=== PATIENT | female | born 1940 | race Caucasian/White ===

== ENCOUNTER 2023-01-26 12:55 | Observation (INO) | payer MEDICARE, OTHER, SELFPAY ==
[2023-01-26] VITALS (8 sets, daily range): BP systolic 114–165; BP diastolic 57–77; PULSE 59–67; RESP 18; TEMP 36.6–36.9; O2SAT 94–97; BMI 37.9; BMI 38.7
--- NOTE | 2023-01-26 13:39 | ECG_ITS ---
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
[2023-01-26 14:18] LABS: Basophils Absolute Auto 0.1 10^3/uL (0.0-0.1); Basophils Percent Auto 0.9 % (0.2-2.0); Eosinophils Absolute Auto 0.1 10^3/uL (0.0-0.7); Eosinophils Percent Auto 1.4 % (0.9-7.0); Hematocrit 37.2 % (36.0-48.0); Hemoglobin 12.7 g/dL (12.0-16.0); Immature Granulocytes Abs Auto 0.07 10^3/uL (0.00-0.03); Immature Granulocytes Pct Auto 1.2 % (0.0-0.5); Lymphocytes Percent Auto 17.3 % (20.5-60.0); Mean Corpuscular HGB Conc 34.1 g/dL (29.9-35.2); Mean Corpuscular Hemoglobin 31.8 pg (26.7-34.0); Mean Platelet Volume 12.3 fL (9.5-13.5); Monocytes Absolute Auto 0.5 10^3/uL (0.3-0.8); Monocytes Percent Auto 8.6 % (1.7-12.0); Neutrophils Percent Auto 70.6 % (43.0-75.0); Platelet Count 171 10^3/uL (150-450); Red Cell Distribution Width 13.2 % (11.0-15.0); White Blood Count 5.7 10^3/uL (4.0-11.0)
[2023-01-26 14:22] LABS: Alanine Aminotransferase 42 U/L (14-59); Albumin Globulin Ratio 0.8; Albumin Level 3.3 g/dL (3.4-5.0); Alkaline Phosphatase 64 U/L (46-116); Aspartate Amino Transferase 36 U/L (15-37); BUN Creatinine Ratio 22.5; Bilirubin Total 0.6 mg/dL (0.2-1.0); Calcium 8.7 mg/dL (8.5-10.1); Carbon Dioxide 27.2 mmol/L (21.0-32.0); Chloride 100 mmol/L (98-107); Estimated GFR (African America >60 (>=60); Estimated GFR (Non-African Ame 52 (>=60); Globulin 4.4 g/dL; Glucose 164 mg/dL (74-106); Potassium 4.2 mmol/L (3.5-5.1); Sodium 135 mmol/L (136-145); Total Protein 7.7 g/dL (6.4-8.2)
--- NOTE | 2023-01-26 14:36 | XR_ITS ---
The [address] [address] Patient Name: VÍCTOR WALDRON MRN: [facility]:[id number] date: 1940 Sex: F Assigned Patient Location: ER Current Patient Location: ER Accession/Order Number: [id number] Exam Date: 01/26/2023 14:45 Report Date: 01/26/2023 15:06 At the request of: MORRO HANKS Procedure: XR ankle LT 2V STUDY: XR ankle LT 2V, XR tibia fibula LT 2V, [id number], [id number] HISTORY: pain COMPARISON: None FINDINGS: No acute fracture, dislocation, or suspicious osseous lesion. No subcutaneous emphysema. No discrete osteolysis. Diffuse subcutaneous edema. No lucent lesion of the talar dome. Moderate dorsal osteophytosis at the metatarsophalangeal joints. Large plantar calcaneal spur and mild callus occasional in the distal Achilles. Mild/moderate osteophytosis of the medial compartment. XR/XR ankle LT 2V IMPRESSION: Diffuse subcutaneous edema without soft tissue gas or acute osseous abnormality. Electronically authenticated by: SELENE PELLETIER Date: 01/26/2023 15:06
--- NOTE | 2023-01-26 14:36 | XR_ITS ---
[address] [address] Patient Name: VÍCTOR WALDRON MRN: [id number] date: 1940 Sex: F Assigned Patient Location: ER Current Patient Location: ER Accession/Order Number: [id number] Exam Date: 01/26/2023 14:45 Report Date: 01/26/2023 15:06 At the request of: MORRO HANKS Procedure: XR tibia fibula LT 2V STUDY: XR ankle LT 2V, XR tibia fibula LT 2V, [id number], [id number] HISTORY: pain COMPARISON: None FINDINGS: No acute fracture, dislocation, or suspicious osseous lesion. No subcutaneous emphysema. No discrete osteolysis. Diffuse subcutaneous edema. No lucent lesion of the talar dome. Moderate dorsal osteophytosis at the metatarsophalangeal joints. Large plantar calcaneal spur and mild callus occasional in the distal Achilles. Mild/moderate osteophytosis of the medial compartment. XR/XR tibia fibula LT 2V IMPRESSION: Diffuse subcutaneous edema without soft tissue gas or acute osseous abnormality. Electronically authenticated by: SELENE PELLETIER Date: 01/26/2023 15:06
[2023-01-26] MEDS: PIPERACILLIN SODIUM/TAZOBACTAM 3.375 GM in 0.9 % SODIUM CHLORIDE 50 ML IV ×2 (14:55→21:01)
--- NOTE | 2023-01-26 15:23 | ED.GENADUL1 ---
Documented by User: Alla Gillespie 01/26/23 15:35 HPI - General Adult General Chief complaint: Extremity Problem, Nontraumatic Stated complaint: LT FOOT AND LEG SWELLING Time Seen by Provider: 01/26/23 14:20 Source: patient Mode of arrival: walk-in Limitations: no limitations History of Present Illness HPI narrative: 82-year-old female presents here with a chief complaint of left lower extremity redness and swelling. Patient's had a history two years ago cellulitis to this extremity. She states that approximately two weeks ago she fell in her garden. She is not wrecked denies any injury or trauma that time. Small pustules noted to the medial aspect of the lower ankle area. She has seen Dr. Ann in the past was admitted to the hospital for her cellulitis. Patient denies any fevers chills nausea or vomiting. Redness swelling and edema noted to the left lower extremity with streaking up into the medial thigh and groin area. She is not currently on any antibiotics. Related Data Home Medications Medication Instructions Recorded Confirmed brimonidine 0.15 % eye drops 1 drp ophthalmic (eye) BID 01/26/23 01/26/23 carvedilol 25 mg tablet 25 mg PO Q12H 01/26/23 01/26/23 diltiazem HCl 180 mg 180 mg PO Q24H 01/26/23 01/26/23 capsule,extended release 24 hr fluoxetine 10 mg capsule 10 mg PO DAILY 01/26/23 01/26/23 furosemide 40 mg tablet 40 mg PO Q12H 01/26/23 01/26/23 potassium chloride 20 mEq 20 meq PO QDAY 01/26/23 01/26/23 tablet,extended release spironolactone 25 mg tablet 25 mg PO QDAY 01/26/23 01/26/23 Allergies Allergy/AdvReac Type Severity Reaction Status Date / Time prednisone Allergy Severe Uncoded 01/26/23 13:04 meta bisulfites Allergy Intermediate Uncoded 01/26/23 13:04 Review of Systems ROS Narrative All Systems are negative except as noted/marked.All systems reviewed and otherwise negative [facility] Medical History (Updated 01/26/23 @ 17:32 by Evelia Deleon) Surgical History (Updated 01/26/23 @ 17:32 by Evelia Deleon) Family History (Updated 01/26/23 @ 17:34 by Evelia Deleon) Mother Family history of CHF (congestive heart failure) Family history of stroke Father Family history of cancer Sister Family history of cancer Social History (Updated 01/26/23 @ 17:35 by Evelia Deleon) Within the past year, how often did you have a drink containing alcohol: never Score interpretation: A score less than 3 is consistent with normal alcohol consumption. 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 level of school completed/degree received: high school graduate Are you now , , , , never or living with a partner: In a typical week, how many times do you talk on the telephone with family, friends, or neighbors: 3 or more times per week How often do you get together with friends or relatives: 3 or more times per week How often do you attend spiritism or denominational services: 4 or more times per year Do you belong to any clubs or organizations such as spiritism groups unions, fraternal or athletic groups, or school groups: no Total score: 3 Score interpretation: A score of greater than or equal to 2 indicates the lowest level of social isolation. Little interest or pleasure in doing things: not at all Feeling down, depressed, or hopeless: not at all Feel stressed/tense/nervous/anxious/difficulty sleeping: not at all Do you think of yourself as: straight/heterosexual Gender Identity: female Exam Narrative Exam Narrative: Nurses note and vital signs reviewed and patient is not hypoxic. General: The patient appears well and in no apparent distress. Patient is resting comfortably on cart. Skin: Warm, dry, no pallor noted. Edema with swelling to left lower extremity consistent with cellulitis, small pustule medial aspect of the ankle lower extremity Head: Normocephalic, atraumatic Eye: Normal conjunctiva, no drainage, EOMI. PERRL Ears, Nose, Mouth, and Throat: oral mucosa is moist. Nares patent. Mouth without vesicles. Ear canals patent. Tm's without Erythema Cardiovascular: Regular Rate and Rhythm Respiratory: Patient is in no distress, no accessory muscle use, lungs are clear to auscultation, no wheezing, rales or rhonchi GI: Normal bowel sounds, no tenderness to palpation, no masses appreciated. No rebound, guarding, or rigidity noted. Musculoskeletal:Left lower extremity swelling, pulses noted, redness irritation and pain, small pustule noted tenderness, remainder of extremities are unremarkable Neurological: A&O x4, normal speech Psychiatric: Cooperative Constitutional Vital Signs, click to edit/add: Last Vital Signs Temp 98.0 F 01/26/23 20:00 Pulse 66 01/26/23 20:12 Resp 18 01/26/23 20:00 BP 165/77 H 01/26/23 20:00 Pulse Ox 94 L 01/26/23 20:00 O2 Del Method Room Air 01/26/23 20:00 Course Vital Signs Vital signs: Vital Signs Temperature 98.5 F 01/26/23 13:05 Pulse Rate 67 01/26/23 13:05 Respiratory Rate 18 01/26/23 13:05 Blood Pressure 114/57 01/26/23 13:05 Pulse Oximetry 97 01/26/23 13:05 Oxygen Delivery Method Room Air 01/26/23 13:05 Temperature 98.0 F 01/26/23 20:00 Pulse Rate 66 01/26/23 20:12 Respiratory Rate 18 01/26/23 20:00 Blood Pressure 165/77 H 01/26/23 20:00 Pulse Oximetry 94 L 01/26/23 20:00 Oxygen Delivery Method Room Air 01/26/23 20:00 Medical Decision Making MDM Narrative Medical decision making narrative: Patient presented here with a chief complaint of left lower extremity redness and swelling. She states it started several days ago. She has history of cellulitis over two years ago. She states her symptoms began here several days ago she has seen Dr. Ann in the past. CBC CMP and labwork was reviewed and with in normal limits . Patient does have streaking up into her groin her left lower extremity has been marked with a marking pen. IV had been established in The emergency room. IV antibiotics of Zosyn and vancomycin were started here in emergency room. She does have a sulfa ALLERGY. pt did fall in her garden two weeks ago but denies any known thorns or scraping of her leg. A was notified of this patient's care and agrees to have her admitted. Patient has seen Marissa in the past. She agrees with plan of care she was admitted to observation diagnosis cellulitis of the left lower extremity the area has been marked. Patient past medical history does include a history she states of a lung collapse when she had cellulitis two years ago. She's had no shortness of breath here today. She states she is ALLERGIC to sulfa medications and prednisone. Differential Diagnosis Differential Diagnosis: Abscess, cellulitis Medical Records Medical records reviewed: Yes I reviewed the patient's medical records Lab Data Lab results reviewed: Yes I reviewed the patient's lab results Labs: Lab Results 01/26/23 Range/Units 13:50 WBC 5.7 (4.0-11.0) 10^3/uL RBC 4.00 L (4.20-5.40) 10^6/uL Hgb 12.7 (12.0-16.0) g/dL Hct 37.2 (36.0-48.0) % MCV 93.0 (81.0-99.0) fL MCH 31.8 (26.7-34.0) pg MCHC 34.1 (29.9-35.2) g/dL RDW 13.2 (11.0-15.0) % Plt Count 171 (150-450) 10^3/uL MPV 12.3 (9.5-13.5) fL Neut % (Auto) 70.6 (43.0-75.0) % Lymph % (Auto) 17.3 L (20.5-60.0) % [place] % (Auto) 8.6 (1.7-12.0) % Eos % (Auto) 1.4 (0.9-7.0) % Baso % (Auto) 0.9 (0.2-2.0) % Neut # (Auto) 4.0 (1.4-6.5) 10^3/uL Lymph # (Auto) 1.0 L (1.2-3.8) 10^3/uL [place] # (Auto) 0.5 (0.3-0.8) 10^3/uL Eos # (Auto) 0.1 (0.0-0.7) 10^3/uL Baso # (Auto) 0.1 (0.0-0.1) 10^3/uL Abs Immat Gran (auto) 0.07 H (0.00-0.03) 10^3/uL Imm/Tot Granulo (auto) 1.2 H (0.0-0.5) % Sodium 135 L (136-145) mmol/L Potassium 4.2 (3.5-5.1) mmol/L Chloride 100 (98-107) mmol/L Carbon Dioxide 27.2 (21.0-32.0) mmol/L Anion Gap 12.0 BUN 23.0 H (7.0-18.0) mg/dL Creatinine 1.02 (0.55-1.02) mg/dL Est GFR ( Amer) >60 (>=60) Est GFR (Non-Af Amer) 52 L (>=60) BUN/Creatinine Ratio 22.5 Glucose 164 H (74-106) mg/dL Calcium 8.7 (8.5-10.1) mg/dL Total Bilirubin 0.6 (0.2-1.0) mg/dL AST 36 (15-37) U/L ALT 42 (14-59) U/L Alkaline Phosphatase 64 (46-116) U/L NT-Pro-B Natriuret Pep 544.0 (<=1800.0) pg/mL Total Protein 7.7 (6.4-8.2) g/dL Albumin 3.3 L (3.4-5.0) g/dL Globulin 4.4 g/dL Albumin/Globulin Ratio 0.8 ECG Data Attestation: I personally reviewed and interpreted this ECG as follows: Interpretation: 1359 EKG shows a normal sinus rhythm rate [address] elevation or depression, LA interval 180 ms QRS duration 96 ms, no STEMI Discharge Plan Discharge Chief Complaint: Extremity Problem, Nontraumatic Clinical Impression: Cellulitis, Lower extremity edema Patient Disposition: Admitted as Observation Time of Disposition Decision: 15:33 Condition: Good Discharge Date/Time: 01/26/23 16:27 Documented by User: Genaro Boland MD 01/26/23 21:07 HPI - General Adult General Chief complaint: Extremity Problem, Nontraumatic Stated complaint: LT FOOT AND LEG SWELLING Time Seen by Provider: 01/26/23 14:20 Related Data Home Medications Medication Instructions Recorded Confirmed brimonidine 0.15 % eye drops 1 drp ophthalmic (eye) BID 01/26/23 01/26/23 carvedilol 25 mg tablet 25 mg PO Q12H 01/26/23 01/26/23 diltiazem HCl 180 mg 180 mg PO Q24H 01/26/23 01/26/23 capsule,extended release 24 hr fluoxetine 10 mg capsule 10 mg PO DAILY 01/26/23 01/26/23 furosemide 40 mg tablet 40 mg PO Q12H 01/26/23 01/26/23 potassium chloride 20 mEq 20 meq PO QDAY 01/26/23 01/26/23 tablet,extended release spironolactone 25 mg tablet 25 mg PO QDAY 01/26/23 01/26/23 Allergies Allergy/AdvReac Type Severity Reaction Status Date / Time prednisone Allergy Severe Uncoded 01/26/23 13:04 meta bisulfites Allergy Intermediate Uncoded 01/26/23 13:04 [facility] Medical History (Updated 01/26/23 @ 17:32 by Evelia Deleon) Surgical History (Updated 01/26/23 @ 17:32 by Evelia Deleon) Family History (Updated 01/26/23 @ 17:34 by Evelia Deleon) Mother Family history of CHF (congestive heart failure) Family history of stroke Father Family history of cancer Sister Family history of cancer Social History (Updated 01/26/23 @ 17:35 by Evelia Deleon) Within the past year, how often did you have a drink containing alcohol: never Score interpretation: A score less than 3 is consistent with normal alcohol consumption. 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 level of school completed/degree received: high school graduate Are you now , , , , never or living with a partner: In a typical week, how many times do you talk on the telephone with family, friends, or neighbors: 3 or more times per week How often do you get together with friends or relatives: 3 or more times per week How often do you attend spiritism or denominational services: 4 or more times per year Do you belong to any clubs or organizations such as spiritism groups unions, fraternal or athletic groups, or school groups: no Total score: 3 Score interpretation: A score of greater than or equal to 2 indicates the lowest level of social isolation. Little interest or pleasure in doing things: not at all Feeling down, depressed, or hopeless: not at all Feel stressed/tense/nervous/anxious/difficulty sleeping: not at all Do you think of yourself as: straight/heterosexual Gender Identity: female Exam Constitutional Vital Signs, click to edit/add: Last Vital Signs Temp 98.0 F 01/26/23 20:00 Pulse 66 01/26/23 20:12 Resp 18 01/26/23 20:00 BP 165/77 H 01/26/23 20:00 Pulse Ox 94 L 01/26/23 20:00 O2 Del Method Room Air 01/26/23 20:00 Course Vital Signs Vital signs: Vital Signs Temperature 98.5 F 01/26/23 13:05 Pulse Rate 67 01/26/23 13:05 Respiratory Rate 18 01/26/23 13:05 Blood Pressure 114/57 01/26/23 13:05 Pulse Oximetry 97 01/26/23 13:05 Oxygen Delivery Method Room Air 01/26/23 13:05 Temperature 98.0 F 01/26/23 20:00 Pulse Rate 66 01/26/23 20:12 Respiratory Rate 18 01/26/23 20:00 Blood Pressure 165/77 H 01/26/23 20:00 Pulse Oximetry 94 L 01/26/23 20:00 Oxygen Delivery Method Room Air 01/26/23 20:00 Medical Decision Making MDM Narrative Medical decision making narrative: Patient presented here with a chief complaint of left lower extremity redness and swelling. She states it started several days ago. She has history of cellulitis over two years ago. She states her symptoms began here several days ago she has seen Dr. Ann in the past. CBC CMP and labwork was reviewed and with in normal limits . Patient does have streaking up into her groin her left lower extremity has been marked with a marking pen. IV had been established in The emergency room. IV antibiotics of Zosyn and vancomycin were started here in emergency room. She does have a sulfa ALLERGY. pt did fall in her garden two weeks ago but denies any known thorns or scraping of her leg. A was notified of this patient's care and agrees to have her admitted. Patient has seen Marissa in the past. She agrees with plan of care she was admitted to observation diagnosis cellulitis of the left lower extremity the area has been marked. I, Dr Boland, have reviewed the above progress note and course of action in the ER; agree with the above. I have personally seen and evaluated this patient, gone over history and physical, and discussed disposition and treatment plan with the patient. Patient past medical history does include a history she states of a lung collapse when she had cellulitis two years ago. She's had no shortness of breath here today. She states she is ALLERGIC to sulfa medications and prednisone. Lab Data Labs: Lab Results 01/26/23 Range/Units 13:50 WBC 5.7 (4.0-11.0) 10^3/uL RBC 4.00 L (4.20-5.40) 10^6/uL Hgb 12.7 (12.0-16.0) g/dL Hct 37.2 (36.0-48.0) % MCV 93.0 (81.0-99.0) fL MCH 31.8 (26.7-34.0) pg MCHC 34.1 (29.9-35.2) g/dL RDW 13.2 (11.0-15.0) % Plt Count 171 (150-450) 10^3/uL MPV 12.3 (9.5-13.5) fL Neut % (Auto) 70.6 (43.0-75.0) % Lymph % (Auto) 17.3 L (20.5-60.0) % [place] % (Auto) 8.6 (1.7-12.0) % Eos % (Auto) 1.4 (0.9-7.0) % Baso % (Auto) 0.9 (0.2-2.0) % Neut # (Auto) 4.0 (1.4-6.5) 10^3/uL Lymph # (Auto) 1.0 L (1.2-3.8) 10^3/uL [place] # (Auto) 0.5 (0.3-0.8) 10^3/uL Eos # (Auto) 0.1 (0.0-0.7) 10^3/uL Baso # (Auto) 0.1 (0.0-0.1) 10^3/uL Abs Immat Gran (auto) 0.07 H (0.00-0.03) 10^3/uL Imm/Tot Granulo (auto) 1.2 H (0.0-0.5) % Sodium 135 L (136-145) mmol/L Potassium 4.2 (3.5-5.1) mmol/L Chloride 100 (98-107) mmol/L Carbon Dioxide 27.2 (21.0-32.0) mmol/L Anion Gap 12.0 BUN 23.0 H (7.0-18.0) mg/dL Creatinine 1.02 (0.55-1.02) mg/dL Est GFR ( Amer) >60 (>=60) Est GFR (Non-Af Amer) 52 L (>=60) BUN/Creatinine Ratio 22.5 Glucose 164 H (74-106) mg/dL Calcium 8.7 (8.5-10.1) mg/dL Total Bilirubin 0.6 (0.2-1.0) mg/dL AST 36 (15-37) U/L ALT 42 (14-59) U/L Alkaline Phosphatase 64 (46-116) U/L NT-Pro-B Natriuret Pep 544.0 (<=1800.0) pg/mL Total Protein 7.7 (6.4-8.2) g/dL Albumin 3.3 L (3.4-5.0) g/dL Globulin 4.4 g/dL Albumin/Globulin Ratio 0.8 Discharge Plan Discharge Chief Complaint: Extremity Problem, Nontraumatic Clinical Impression: Cellulitis, Lower extremity edema Patient Disposition: Admitted as Observation Time of Disposition Decision: 15:33 Condition: Good Discharge Date/Time: 01/26/23 16:27
[2023-01-26] MEDS: VANCOMYCIN HCL 1,000 MG in 0.9 % SODIUM CHLORIDE 250 ML 250 MG IV (15:43)
--- NOTE | 2023-01-26 15:55 | US_ITS ---
The [address] [address] Patient Name: VÍCTOR WALDRON MRN: [id number] date: 1940 Sex: F Assigned Patient Location: ER Current Patient Location: ER Accession/Order Number: [id number] Exam Date: 01/26/2023 15:58 Report Date: 01/26/2023 16:28 At the request of: GEO ERICKSON Procedure: US venous doppler LE LT EXAM: US venous doppler LE LT HISTORY: swelling COMPARISON: None. TECHNIQUE: Ultrasonography of the left lower extremity is performed from the groin to the calf. There is limited visualization of the calf veins. FINDINGS: The deep venous structures demonstrate normal compressibility. No intraluminal thrombus. Normal color Doppler images with spectral waveforms. There is soft tissue edema in the calf. US/US venous doppler LE LT IMPRESSION: No evidence for deep venous thrombosis. Calf edema. Limited visualization of the calf veins. Electronically authenticated by: PRANAY GLEZ Date: 01/26/2023 16:28
[2023-01-26] MEDS: FUROSEMIDE 40 MG TABLET PO (21:00)
[2023-01-27] VITALS (10 sets, daily range): BP systolic 159; BP diastolic 72; PULSE 56–75; RESP 18; TEMP 36.6; O2SAT 95–96
[2023-01-27 05:02] LABS: Basophils Absolute Auto 0.1 10^3/uL (0.0-0.1); Basophils Percent Auto 1.3 % (0.2-2.0); Eosinophils Absolute Auto 0.2 10^3/uL (0.0-0.7); Eosinophils Percent Auto 2.9 % (0.9-7.0); Hematocrit 37.2 % (36.0-48.0); Hemoglobin 12.6 g/dL (12.0-16.0); Immature Granulocytes Abs Auto 0.17 10^3/uL (0.00-0.03); Immature Granulocytes Pct Auto 2.9 % (0.0-0.5); Lymphocytes Absolute Auto 1.4 10^3/uL (1.2-3.8); Lymphocytes Percent Auto 23.3 % (20.5-60.0); Mean Corpuscular HGB Conc 33.9 g/dL (29.9-35.2); Mean Corpuscular Hemoglobin 31.8 pg (26.7-34.0); Mean Corpuscular Volume 93.9 fL (81.0-99.0); Mean Platelet Volume 11.6 fL (9.5-13.5); Monocytes Absolute Auto 0.7 10^3/uL (0.3-0.8); Monocytes Percent Auto 10.9 % (1.7-12.0); Neutrophils Absolute Auto 3.5 10^3/uL (1.4-6.5); Neutrophils Percent Auto 58.7 % (43.0-75.0); Platelet Count 197 10^3/uL (150-450); Red Blood Count 3.96 10^6/uL (4.20-5.40); Red Cell Distribution Width 13.3 % (11.0-15.0)
[2023-01-27 05:17] LABS: BUN Creatinine Ratio 23.7; Calcium 8.5 mg/dL (8.5-10.1); Carbon Dioxide 25.1 mmol/L (21.0-32.0); Chloride 99 mmol/L (98-107); Estimated GFR (African America >60 (>=60); Estimated GFR (Non-African Ame 55 (>=60); Glucose 181 mg/dL (74-106); Potassium 4.1 mmol/L (3.5-5.1); Sodium 134 mmol/L (136-145)
[2023-01-27] MEDS: PIPERACILLIN SODIUM/TAZOBACTAM 3.375 GM in 0.9 % SODIUM CHLORIDE 50 ML IV (05:21)
[2023-01-27 05:44] LABS: C Reactive Protein 10.8 mg/dL (<=1.0)
[2023-01-27] MEDS: SPIRONOLACTONE 25 MG TABLET PO (09:32)
[2023-01-27] MEDS: CARVEDILOL 25 MG TABLET PO (09:32)
[2023-01-27] MEDS: POTASSIUM CHLORIDE 10 MEQ ER TABLET 20 MEQ PO (09:32)
[2023-01-27] MEDS: FUROSEMIDE 40 MG TABLET PO (09:32)
[2023-01-27] MEDS: FLUOXETINE HCL 10 MG CAPSULE PO (09:33)
[2023-01-27] MEDS: VANCOMYCIN HCL 1,500 MG in 0.9 % SODIUM CHLORIDE 500 ML 250 MG IV (09:50)
--- NOTE | 2023-01-27 12:04 | P.HP_ITS ---
H&P: HPI History of Present Illness Chief complaint: LT FOOT AND LEG SWELLING CELLULITIS LOWER EXTREMIT Narrative: 82 y/o female with a history of CHF and chronic venous stasis presents with left foot and leg redness and swelling. Fell about 2 weeks ago. Developed increased swelling and redness to left leg. Noticed small blisters on skin. Redness started to spread up leg above knee and worried about cellulitis. Afebrile and no nausea or emesis. To ER and WBC normal. Afebrile. X-ray showed subcutaneou s edema and admitted. Started zosyn and vancomycin. Much improved this am. Redness receding from demarcated border. Less pain and swelling. Ambulating well. Review of Systems ROS Constitutional Denies: fever, chills or night sweats Cardiovascular Denies: chest pain, palpitations or edema Respiratory Denies: shortness of breath, cough or wheezing Gastrointestinal Denies: abdominal pain, nausea, vomiting or diarrhea Genitourinary Denies: painful urination Integumentary/Breast Reports: redness PFSH [facility] Medical History (Updated 01/27/23 @ 10:07 by Rafa Denney MD) Surgical History (Updated 01/26/23 @ 17:32 by Evelia Deleon) Family History (Updated 01/26/23 @ 17:34 by Evelia Deleon) Mother Family history of CHF (congestive heart failure) Family history of stroke Father Family history of cancer Sister Family history of cancer Social History (Updated 01/26/23 @ 17:35 by Evelia Deleon) Within the past year, how often did you have a drink containing alcohol: never Score interpretation: A score less than 3 is consistent with normal alcohol consumption. 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 Highest level of school completed/degree received: high school graduate Are you now , , , , never or living with a partner: In a typical week, how many times do you talk on the telephone with family, friends, or neighbors: 3 or more times per week How often do you get together with friends or relatives: 3 or more times per week How often do you attend adventist or roman catholic services: 4 or more times per year Do you belong to any clubs or organizations such as adventist groups unions, fraternal or athletic groups, or school groups: no Total score: 3 Score interpretation: A score of greater than or equal to 2 indicates the lowest level of social isolation. Little interest or pleasure in doing things: not at all Feeling down, depressed, or hopeless: not at all Feel stressed/tense/nervous/anxious/difficulty sleeping: not at all Do you think of yourself as: straight/heterosexual Gender Identity: female Meds Home Medications and Allergies Home Medications Medication Instructions Recorded Confirmed Type brimonidine 0.15 % eye drops 1 drp ophthalmic (eye) BID 01/26/23 01/26/23 History carvedilol 25 mg tablet 25 mg PO Q12H 01/26/23 01/26/23 History diltiazem HCl 180 mg 180 mg PO Q24H 01/26/23 01/26/23 History capsule,extended release 24 hr fluoxetine 10 mg capsule 10 mg PO DAILY 01/26/23 01/26/23 History furosemide 40 mg tablet 40 mg PO Q12H 01/26/23 01/26/23 History potassium chloride 20 mEq 20 meq PO QDAY 01/26/23 01/26/23 History tablet,extended release spironolactone 25 mg tablet 25 mg PO QDAY 01/26/23 01/26/23 History Allergies Allergy/AdvReac Type Severity Reaction Status Date / Time prednisone Allergy Severe Uncoded 01/26/23 13:04 meta bisulfites Allergy Intermediate Uncoded 01/26/23 13:04 Exam Constitutional Vital Signs, click to edit/add: Last Vital Signs Temp 97.8 F 01/27/23 04:37 Pulse 61 01/27/23 11:55 Resp 18 01/27/23 04:37 BP 159/72 H 01/27/23 04:37 Pulse Ox 96 01/27/23 11:43 O2 Del Method Room Air 01/27/23 11:43 Documenting provider has reviewed patient's vital signs: yes Common normals: no apparent distress, oriented x3 and alert HENMT Common normals: normocephalic Eye Common normals: PERRL and EOMs intact bilaterally Respiratory Common normals: normal respiratory effort and clear to auscultation bilaterally Cardio Common normals: regular rate, regular rhythm, no gallops, no murmurs and no rub GI Common normals: Normal to inspection, nondistended, normoactive bowel sounds present and non-tender Extremity General: edema (Left leg with 3+ bipedal pitting edema and mild erythema) Results Labs Labs: Short CBC 01/26/23 01/27/23 Range/Units 13:50 04:30 WBC 5.7 6.0 (4.0-11.0) 10^3/uL Hgb 12.7 12.6 (12.0-16.0) g/dL Hct 37.2 37.2 (36.0-48.0) % Plt Count 171 197 (150-450) 10^3/uL BMP 01/26/23 01/27/23 13:50 04:35 Sodium 135 L 134 L Potassium 4.2 4.1 Chloride 100 99 Carbon Dioxide 27.2 25.1 BUN 23.0 H 23.0 H Creatinine 1.02 0.97 Glucose 164 H 181 H Calcium 8.7 8.5 Liver Function 01/26/23 Range/Units 13:50 Total Bilirubin 0.6 (0.2-1.0) mg/dL AST 36 (15-37) U/L ALT 42 (14-59) U/L Alkaline Phosphatase 64 (46-116) U/L Albumin 3.3 L (3.4-5.0) g/dL Assessment and Plan Assessment and Plan (1) Cellulitis of left leg: (2) Chronic venous stasis dermatitis: (3) Hypertension: (4) Chronic heart failure with preserved ejection fraction (HFpEF): (5) Prediabetes: Plan Presented with erythema and swelling but improved with antibiotics. Afebrile and erythema much improved. Normal WBC. Discharge home. Will take oral augmentin and bactrim for infection. Resume home medication as directed. F/u in office in 2-4 weeks.
--- NOTE | 2023-01-30 11:54 | CM.DCFOLLOWU ---
Person spoke with: Danielle How are you feeling? Doing well How is your pain? no complaints Did you understand your discharge instructions? Yes Do you have any questions about your discharge instructions? No Were you given any prescriptions at discharge? Yes, two antibiotics Were you able to get your prescriptions filled? Yes and taking them as directed. Do you understand how to take your medications as ordered? yes Do you have any questions about your follow up appointment and do you plan to keep your follow up appointment? Dr. Denney instructed her to follow up if there were any changes in the redness, pain or increase in the area of cellulitis Is there anything else that you would like to discuss? No. Doing well. Questions/Comments/Concerns/Other:
== END 2023-01-27 13:30 | disposition home or self-care (01) ==
LOC: ER 15:35 → MS 18:42
PROVIDERS: Family Medicine; Admitting Provider Family Medicine; Emergency Provider Emergency Medicine; PCP Family Medicine; Visit Provider Family Medicine
DX: L03.116 Cellulitis of left lower limb (principal); I87.2 Venous insufficiency (chronic) (peripheral); R73.03 Prediabetes; I11.0 Hypertensive heart disease with heart failure; I50.32 Chronic diastolic (congestive) heart failure; Z79.899 Other long term (current) drug therapy; Z91.81 History of falling
CPT/HCPCS: 36415; 73590; 73600; 80048; 80053; 83880; 85025; 86140; 87040; 93005; 93971; 94761; 96365; 96366; 96367; 96368; 99285; G0378; J3370

== ENCOUNTER 2023-03-24 13:20 | Observation (INO) | payer MEDICARE, OTHER, SELFPAY ==
[2023-03-24 13:28] VITALS: BP 190/102; PULSE 77; RESP 24; TEMP 36.7; O2SAT 97; BMI 38.3
--- NOTE | 2023-03-24 13:43 | ED.GENADUL1 ---
HPI - General Adult General Chief complaint: Skin/Abscess/Foreign Body Stated complaint: POSS. CELLULITIS IN L LEG/RED Time Seen by Provider: 03/24/23 13:28 Source: patient Mode of arrival: walk-in Limitations: no limitations History of Present Illness HPI narrative: left leg swelling, redness and pain that started 4 days ago but worsened dramatically over night. No systemic complaints such as fever or vomiting. She was admitted 01/26/23 for LE cellulitis and went home with bactrim and augmentin - she said the redness and swelling went away . No the left leg has several areas of superficial skin break with weeping or serous fluid and some yellowish crusting. No left calf or popliteal tenderness. No recent injury. Her PCP is Dr Denney Related Data Home Medications Medication Instructions Recorded Confirmed brimonidine 0.15 % eye drops 1 drp ophthalmic (eye) BID 01/26/23 03/24/23 carvedilol 25 mg tablet 25 mg PO BID 01/26/23 03/24/23 diltiazem HCl 180 mg 180 mg PO DAILY 01/26/23 03/24/23 capsule,extended release 24 hr fluoxetine 10 mg capsule 10 mg PO DAILY 01/26/23 03/24/23 furosemide 40 mg tablet 40 mg PO BID PRN edema 01/26/23 03/24/23 potassium chloride 20 mEq 20 meq PO DAILY 01/26/23 03/24/23 tablet,extended release spironolactone 25 mg tablet 25 mg PO DAILY 01/26/23 03/24/23 Allergies Allergy/AdvReac Type Severity Reaction Status Date / Time prednisone Allergy Severe Uncoded 03/24/23 13:28 meta bisulfites Allergy Intermediate Uncoded 03/24/23 13:28 [facility] Medical History (Updated 03/24/23 @ 14:31 by Juancho Aguero) Anxiety ?F41.9 - Anxiety disorder, unspecified (ICD-10) Cataracts, bilateral ?H26.9 - Unspecified cataract (ICD-10) Cellulitis ?L03.90 - Cellulitis, unspecified (ICD-10) Cellulitis ?L03.90 - Cellulitis, unspecified (ICD-10) Chronic heart failure with preserved ejection fraction (HFpEF) ?I50.32 - Chronic diastolic (congestive) heart failure (ICD-10) Chronic venous stasis dermatitis ?I87.2 - Venous insufficiency (chronic) (peripheral) (ICD-10) Collapse, lung ?J98.19 - Other pulmonary collapse (ICD-10) Edema ?R60.9 - Edema, unspecified (ICD-10) Hypertension ?I10 - Essential (primary) hypertension (ICD-10) Prediabetes ?R73.03 - Prediabetes (ICD-10) Shortness of breath ?R06.02 - Shortness of breath (ICD-10) Surgical History (Updated 01/26/23 @ 17:32 by Evelia Deleon) H/O: hysterectomy ?Z90.710 - Acquired absence of both cervix and uterus (ICD-10) History of thoracentesis ?Z98.890 - Other specified postprocedural states (ICD-10) Family History (Updated 01/26/23 @ 17:34 by Evelia Deleon) Mother Family history of CHF (congestive heart failure) Family history of stroke Father Family history of cancer Sister Family history of cancer Social History (Updated 01/26/23 @ 17:35 by Evelia Deleon) Within the past year, how often did you have a drink containing alcohol: never Score interpretation: A score less than 3 is consistent with normal alcohol consumption. 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 Highest level of school completed/degree received: high school graduate Are you now , , , , never or living with a partner: In a typical week, how many times do you talk on the telephone with family, friends, or neighbors: 3 or more times per week How often do you get together with friends or relatives: 3 or more times per week How often do you attend confucianism or adventism services: 4 or more times per year Do you belong to any clubs or organizations such as confucianism groups unions, fraternal or athletic groups, or school groups: no Total score: 3 Score interpretation: A score of greater than or equal to 2 indicates the lowest level of social isolation. Little interest or pleasure in doing things: not at all Feeling down, depressed, or hopeless: not at all Feel stressed/tense/nervous/anxious/difficulty sleeping: not at all Do you think of yourself as: straight/heterosexual Gender Identity: female Exam Narrative Exam Narrative: Nurses notes and vital signs reviewed and patient is not hypoxic. afebrile General: Well-appearing and in no apparent distress. Skin: Warm, dry, no pallor noted. Eye: Pupils are equal, round and EOMI. No scleral icterus. Ears, Nose, Mouth, and Throat: Oral mucosa is moist Cardiovascular: Regular Rate and Rhythm without murmur, gallop or rub. Respiratory: No accessory muscle use or respiratory distress. Lungs are clear to auscultation, no wheezing, rales or rhonchi Musculoskeletal: Left Lower leg - swelling, erythema, warmth and anterior tenderness. There are several areas of superficial skin break with seeping or serous fluid and some yellowish crusting. There is circumferential erythema. Left ankle and foot with normal ROM, no left calf or popliteal tenderness. Unremarkable right LE. GI: Abdomen is soft, non-distended. Normal bowel sounds. Morbidly obese. No tenderness to palpation. No rebound, guarding, or rigidity noted. Neurological: A&O x4. No cranial nerve dysfunction observed. No truncal ataxia. Moves all extremities. Sensation intact. Psychiatric: Cooperative and interactive. Normal mood and affect. Constitutional Vital Signs, click to edit/add: Last Vital Signs Temp 98.1 F 03/24/23 13:28 Pulse 77 03/24/23 13:28 Resp 24 03/24/23 13:28 BP 190/102 H 03/24/23 13:28 Pulse Ox 97 03/24/23 13:28 Course Vital Signs Vital signs: Vital Signs Temperature 98.1 F 03/24/23 13:28 Pulse Rate 77 03/24/23 13:28 Respiratory Rate 24 03/24/23 13:28 Blood Pressure 190/102 H 03/24/23 13:28 Pulse Oximetry 97 03/24/23 13:28 Temperature 98.1 F 03/24/23 13:28 Pulse Rate 77 03/24/23 13:28 Respiratory Rate 24 03/24/23 13:28 Blood Pressure 190/102 H 03/24/23 13:28 Pulse Oximetry 97 03/24/23 13:28 Medical Decision Making MDM Narrative Medical decision making narrative: this patient has circumferential cellulitis of the left lower leg. She will need to be admitted for IV antibiotics and further monitoring and care. Peripheral IV was established and blood drawn and sent for testing including blood cultures ?2 and lactate. Patient was ordered to receive Zosyn and vancomycin IV. Pharmacy called and asked to give the vancomycin at 15 mg/kg for 1st dose. US left LE ordered - no DVT found. Call placed to Dr Turner, hospitalist [employer] to discuss admission. He agreed to admit the patient to his service. US negative so patient admitted to [facility], observation without telemetry monitoring. Lab Data Lab results reviewed: Yes I reviewed the patient's lab results Labs: Lab Results 03/24/23 Range/Units 13:50 WBC 6.7 (4.0-11.0) 10^3/uL RBC 3.87 L (4.20-5.40) 10^6/uL Hgb 12.1 (12.0-16.0) g/dL Hct 36.1 (36.0-48.0) % MCV 93.3 (81.0-99.0) fL MCH 31.3 (26.7-34.0) pg MCHC 33.5 (29.9-35.2) g/dL RDW 13.2 (11.0-15.0) % Plt Count 167 (150-450) 10^3/uL MPV 12.0 (9.5-13.5) fL Neut % (Auto) 74.9 (43.0-75.0) % Lymph % (Auto) 15.9 L (20.5-60.0) % Pickett % (Auto) 6.9 (1.7-12.0) % Eos % (Auto) 1.3 (0.9-7.0) % Baso % (Auto) 0.4 (0.2-2.0) % Neut # (Auto) 5.0 (1.4-6.5) 10^3/uL Lymph # (Auto) 1.1 L (1.2-3.8) 10^3/uL Pickett # (Auto) 0.5 (0.3-0.8) 10^3/uL Eos # (Auto) 0.1 (0.0-0.7) 10^3/uL Baso # (Auto) 0.0 (0.0-0.1) 10^3/uL Abs Immat Gran (auto) 0.04 H (0.00-0.03) 10^3/uL Imm/Tot Granulo (auto) 0.6 H (0.0-0.5) % Sodium 136 (136-145) mmol/L Potassium 4.0 (3.5-5.1) mmol/L Chloride 101 (98-107) mmol/L Carbon Dioxide 28.1 (21.0-32.0) mmol/L Anion Gap 10.9 BUN 17.0 (7.0-18.0) mg/dL Creatinine 0.92 (0.55-1.02) mg/dL Est GFR ( Amer) >60 (>=60) Est GFR (Non-Af Amer) 59 L (>=60) BUN/Creatinine Ratio 18.5 Glucose 190 H (74-106) mg/dL Lactate 1.1 (0.4-2.0) mmol/L Calcium 8.8 (8.5-10.1) mg/dL Discharge Plan Discharge Chief Complaint: Skin/Abscess/Foreign Body Clinical Impression: Cellulitis of left lower leg Patient Disposition: Admitted as Observation Time of Disposition Decision: 14:31
--- NOTE | 2023-03-24 13:49 | US_ITS ---
The [address] [address] Patient Name: VÍCTOR WALDRON MRN: [id number] date: 1940 Sex: F Assigned Patient Location: [place] Current Patient Location: [place] Accession/Order Number: [id number] Exam Date: 03/24/2023 14:11 Report Date: 03/24/2023 15:07 At the request of: NERIS CHIU Procedure: US venous doppler LE LT LEFT LOWER EXTREMITY VENOUS ULTRASOUND: 03/24/2023 2:11 PM EDT Clinical Data: left LE redness, swelling and pain Comparison: No previous Grayscale and Doppler evaluation. Exam is less than optimal. Patient was unable to tolerate compression. No distinct evidence of DVT. Again, the peroneal veins in the calf are not seen. There is subcutaneous edema. US/US venous doppler LE LT IMPRESSION: 1. No distinct evidence of DVT but follow-up studies if indicated Electronically authenticated by: NIMA YEUNG Date: 03/24/2023 15:07
[2023-03-24] MEDS: VANCOMYCIN HCL 1,500 MG in 0.9 % SODIUM CHLORIDE 500 ML 250 MG IV (14:02)
[2023-03-24 14:19] LABS: Basophils Percent Auto 0.4 % (0.2-2.0); Eosinophils Absolute Auto 0.1 10^3/uL (0.0-0.7); Eosinophils Percent Auto 1.3 % (0.9-7.0); Hematocrit 36.1 % (36.0-48.0); Hemoglobin 12.1 g/dL (12.0-16.0); Immature Granulocytes Abs Auto 0.04 10^3/uL (0.00-0.03); Immature Granulocytes Pct Auto 0.6 % (0.0-0.5); Lymphocytes Absolute Auto 1.1 10^3/uL (1.2-3.8); Lymphocytes Percent Auto 15.9 % (20.5-60.0); Mean Corpuscular HGB Conc 33.5 g/dL (29.9-35.2); Mean Corpuscular Hemoglobin 31.3 pg (26.7-34.0); Mean Corpuscular Volume 93.3 fL (81.0-99.0); Monocytes Absolute Auto 0.5 10^3/uL (0.3-0.8); Monocytes Percent Auto 6.9 % (1.7-12.0); Neutrophils Percent Auto 74.9 % (43.0-75.0); Platelet Count 167 10^3/uL (150-450); Red Blood Count 3.87 10^6/uL (4.20-5.40); Red Cell Distribution Width 13.2 % (11.0-15.0); White Blood Count 6.7 10^3/uL (4.0-11.0)
[2023-03-24 14:30] LABS: Anion Gap 10.9; BUN Creatinine Ratio 18.5; Calcium 8.8 mg/dL (8.5-10.1); Carbon Dioxide 28.1 mmol/L (21.0-32.0); Chloride 101 mmol/L (98-107); Estimated GFR (African America >60 (>=60); Estimated GFR (Non-African Ame 59 (>=60); Glucose 190 mg/dL (74-106); Sodium 136 mmol/L (136-145)
[2023-03-24 14:38] LABS: Lactate/Lactic Acid 1.1 mmol/L (0.4-2.0)
[2023-03-24 15:09] VITALS: PULSE 85; RESP 16; TEMP 36.6; O2SAT 96
[2023-03-24 15:14] VITALS: BP 180/72; PULSE 62; RESP 20; TEMP 36.6; O2SAT 95; BMI 39.0
[2023-03-24] MEDS: PIPERACILLIN SODIUM/TAZOBACTAM 4.5 GM in 0.9 % SODIUM CHLORIDE 50 ML IV (16:38)
[2023-03-24 19:31] VITALS: BP 165/68; PULSE 66; RESP 20; TEMP 36.7; O2SAT 93
[2023-03-24 19:34] VITALS: O2SAT 93
[2023-03-24] MEDS: ENOXAPARIN SODIUM 40 MG/0.4 ML SYRINGE SUBQ (21:20)
[2023-03-24] MEDS: CARVEDILOL 25 MG TABLET PO (21:21)
[2023-03-25 04:38] LABS: Basophils Percent Auto 0.8 % (0.2-2.0); Eosinophils Absolute Auto 0.1 10^3/uL (0.0-0.7); Eosinophils Percent Auto 2.3 % (0.9-7.0); Hemoglobin 11.1 g/dL (12.0-16.0); Immature Granulocytes Abs Auto 0.05 10^3/uL (0.00-0.03); Lymphocytes Absolute Auto 1.4 10^3/uL (1.2-3.8); Mean Corpuscular HGB Conc 31.7 g/dL (29.9-35.2); Mean Corpuscular Hemoglobin 30.6 pg (26.7-34.0); Mean Corpuscular Volume 96.4 fL (81.0-99.0); Mean Platelet Volume 12.1 fL (9.5-13.5); Monocytes Absolute Auto 0.4 10^3/uL (0.3-0.8); Monocytes Percent Auto 8.4 % (1.7-12.0); Neutrophils Absolute Auto 3.1 10^3/uL (1.4-6.5); Neutrophils Percent Auto 60.5 % (43.0-75.0); Platelet Count 159 10^3/uL (150-450); Red Blood Count 3.63 10^6/uL (4.20-5.40); Red Cell Distribution Width 13.3 % (11.0-15.0); White Blood Count 5.1 10^3/uL (4.0-11.0)
[2023-03-25 05:00] LABS: Alanine Aminotransferase 20 U/L (14-59); Albumin Globulin Ratio 0.7; Albumin Level 2.8 g/dL (3.4-5.0); Alkaline Phosphatase 49 U/L (46-116); Anion Gap 11.3; Aspartate Amino Transferase 13 U/L (15-37); BUN Creatinine Ratio 21.2; Bilirubin Total 0.4 mg/dL (0.2-1.0); Calcium 8.4 mg/dL (8.5-10.1); Carbon Dioxide 26.8 mmol/L (21.0-32.0); Chloride 103 mmol/L (98-107); Estimated GFR (African America >60 (>=60); Estimated GFR (Non-African Ame >60 (>=60); Globulin 4.3 g/dL; Glucose 137 mg/dL (74-106); Potassium 4.1 mmol/L (3.5-5.1); Sodium 137 mmol/L (136-145); Total Protein 7.1 g/dL (6.4-8.2)
[2023-03-25 05:31] VITALS: BP 164/67; PULSE 58; RESP 18; TEMP 36.6; O2SAT 94
[2023-03-25] MEDS: ACETAMINOPHEN 325 MG TABLET 650 MG PO (06:13)
[2023-03-25 08:00] VITALS: RESP 20
[2023-03-25] MEDS: BRIMONIDINE TARTRATE 0.15 % OP SOL 100 DROP/5 ML BOTTLE OP (09:17)
[2023-03-25] MEDS: DILTIAZEM HCL 180 MG CAP.ER.24H PO (09:17)
[2023-03-25] MEDS: CARVEDILOL 25 MG TABLET PO (09:17)
[2023-03-25] MEDS: FLUOXETINE HCL 10 MG CAPSULE PO (09:18)
[2023-03-25] MEDS: SPIRONOLACTONE 25 MG TABLET PO (09:18)
[2023-03-25 12:08] VITALS: O2SAT 93
--- NOTE | 2023-03-25 12:27 | PM.HP ---
H&P: HPI History of Present Illness Chief complaint: left leg pain and celllulitis Narrative: HPI and Hospital Course: 82 y o female presents with left leg swelling, erythema and tenderness that started past Sunday. She has prior hx of LE cellulitis not long ago. Denies trauma. She does have chronic venous insufficiency and skin changes c/w venous stasis. Denies fever, chills. US negative for DVT. She was admitted overnight for it and was treated with IV vancomycin. Earlier today - swelling and erythema has sig gone down and she currently has no pain. She is stable from medical pov for discharge on oral abx. Admission Diagnosis Left LE cellulitis Chronic venous insufficiency. HFpEF HTN Morbid obesity Discharge Diagnosis as above Discharge status stable Review of Systems ROS Status of ROS 10 or more systems reviewed and unremarkable except as noted in history and below [facility] Medical History (Updated 03/25/23 @ 12:33 by Shaikh Yue MD) Anxiety ?F41.9 - Anxiety disorder, unspecified (ICD-10) Cataracts, bilateral ?H26.9 - Unspecified cataract (ICD-10) Cellulitis ?L03.90 - Cellulitis, unspecified (ICD-10) Cellulitis ?L03.90 - Cellulitis, unspecified (ICD-10) Chronic heart failure with preserved ejection fraction (HFpEF) ?I50.32 - Chronic diastolic (congestive) heart failure (ICD-10) Chronic venous insufficiency of lower extremity ?I87.2 - Venous insufficiency (chronic) (peripheral) (ICD-10) Chronic venous stasis dermatitis ?I87.2 - Venous insufficiency (chronic) (peripheral) (ICD-10) Collapse, lung ?J98.19 - Other pulmonary collapse (ICD-10) Edema ?R60.9 - Edema, unspecified (ICD-10) Hypertension ?I10 - Essential (primary) hypertension (ICD-10) Prediabetes ?R73.03 - Prediabetes (ICD-10) Shortness of breath ?R06.02 - Shortness of breath (ICD-10) Surgical History (Updated 01/26/23 @ 17:32 by Evelia Deleon) H/O: hysterectomy ?Z90.710 - Acquired absence of both cervix and uterus (ICD-10) History of thoracentesis ?Z98.890 - Other specified postprocedural states (ICD-10) Family History (Updated 01/26/23 @ 17:34 by Evelia Deleon) Mother Family history of CHF (congestive heart failure) Family history of stroke Father Family history of cancer Sister Family history of cancer Social History (Updated 01/26/23 @ 17:35 by Evelia Deleon) Within the past year, how often did you have a drink containing alcohol: never Score interpretation: A score less than 3 is consistent with normal alcohol consumption. 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 Highest level of school completed/degree received: high school graduate Are you now , , , , never or living with a partner: In a typical week, how many times do you talk on the telephone with family, friends, or neighbors: 3 or more times per week How often do you get together with friends or relatives: 3 or more times per week How often do you attend evangelical or faith services: 4 or more times per year Do you belong to any clubs or organizations such as evangelical groups unions, [place] or athletic groups, or school groups: no Total score: 3 Score interpretation: A score of greater than or equal to 2 indicates the lowest level of social isolation. Little interest or pleasure in doing things: not at all Feeling down, depressed, or hopeless: not at all Feel stressed/tense/nervous/anxious/difficulty sleeping: not at all Do you think of yourself as: straight/heterosexual Gender Identity: female Meds Home Medications and Allergies Home Medications Medication Instructions Recorded Confirmed Type brimonidine 0.15 % eye drops 1 drp ophthalmic (eye) DAILY 01/26/23 03/24/23 History carvedilol 25 mg tablet 25 mg PO BID 01/26/23 03/24/23 History diltiazem HCl 180 mg 180 mg PO DAILY 01/26/23 03/24/23 History capsule,extended release 24 hr fluoxetine 10 mg capsule 10 mg PO DAILY 01/26/23 03/24/23 History furosemide 40 mg tablet 40 mg PO BID PRN edema 01/26/23 03/24/23 History potassium chloride 20 mEq 20 meq PO DAILY 01/26/23 03/24/23 History tablet,extended release spironolactone 25 mg tablet 25 mg PO DAILY 01/26/23 03/24/23 History Allergies Allergy/AdvReac Type Severity Reaction Status Date / Time prednisone Allergy Severe Uncoded 03/24/23 13:28 meta bisulfites Allergy Intermediate Uncoded 03/24/23 13:28 Exam Constitutional Vital Signs, click to edit/add: Last Vital Signs Temp 97.8 F 03/25/23 05:31 Pulse 58 L 03/25/23 05:31 Resp 20 03/25/23 08:00 BP 164/67 H 03/25/23 05:31 Pulse Ox 93 L 03/25/23 12:08 O2 Del Method Room Air 03/25/23 12:08 Documenting provider has reviewed patient's vital signs: yes Common normals: no apparent distress and oriented x3 General appearance: cooperative Nutritional appearance: obese HENMT Common normals: normocephalic and head/scalp atraumatic Head and scalp: normocephalic and atraumatic Eye Common normals: conjunctivae normal and no scleral icterus Conjunctiva: conjunctiva(e) normal Respiratory Common normals: normal respiratory effort and clear to auscultation bilaterally Effort & inspection: able to speak in complete sentences Auscultation: clear to auscultation bilaterally Cardio Common normals: regular rate, S1 normal heart sound and S2 normal heart sound Rate: regular rate Heart sounds: S1 normal and S2 normal GI Common normals: Normal to inspection, nondistended, normoactive bowel sounds present, soft to palpation, non-tender and no hepatosplenomegaly Palpation: soft and no hepatosplenomegaly Extremity Other: left LE - dry skin, chronic skin discoloration, mild erythema swelling when compared to right LE. Neuro Common normals: oriented x3, moves all extremities and no focal motor deficits Psych Common normals: mental status grossly normal, denies hallucinations, denies homicidal ideation and denies suicidal ideation Results Labs Labs: Short CBC 03/24/23 03/25/23 Range/Units 13:50 04:14 WBC 6.7 5.1 (4.0-11.0) 10^3/uL Hgb 12.1 11.1 L (12.0-16.0) g/dL Hct 36.1 35.0 L (36.0-48.0) % Plt Count 167 159 (150-450) 10^3/uL BMP 03/24/23 03/25/23 13:50 04:14 Sodium 136 137 Potassium 4.0 4.1 Chloride 101 103 Carbon Dioxide 28.1 26.8 BUN 17.0 18.0 Creatinine 0.92 0.85 Glucose 190 H 137 H Calcium 8.8 8.4 L Liver Function 03/25/23 Range/Units 04:14 Total Bilirubin 0.4 (0.2-1.0) mg/dL AST 13 L (15-37) U/L ALT 20 (14-59) U/L Alkaline Phosphatase 49 (46-116) U/L Albumin 2.8 L (3.4-5.0) g/dL Assessment and Plan Assessment and Plan (1) Cellulitis of left lower leg: (2) Chronic heart failure with preserved ejection fraction (HFpEF): (3) Hypertension: (4) Chronic venous insufficiency of lower extremity: Plan Admitted for LLE cellulitis - Will d/c on Oral Bactrim. x 10 days Patient advised to have an evaluation for venous reflux as outpatient. She was educated on worrisome signs and symptoms related to cellulitis and to seek help if she developed those upon discharge. F/u with PCP in one week
--- NOTE | 2023-03-26 14:39 | CM.DCFOLLOWU ---
Person spoke with: patient How are you feeling? doing much better How is your pain? a little bit but nothing major Did you understand your discharge instructions? yes Do you have any questions about your discharge instructions? no questions Were you given any prescriptions at discharge? yes Were you able to get your prescriptions filled? yes Do you understand how to take your medications as ordered? yes, repeated instructions to me Do you have any questions about your follow up appointment and do you plan to keep your follow up appointment? Pt. states she called and has a follow up next week. Could not remember the day, she stated her paper was in her kitchen. Is there anything else that you would like to discuss? No Questions/Comments/Concerns/Other: n/a
== END 2023-03-25 15:22 | disposition home or self-care (01) ==
LOC: ER 14:00 → MS 14:24
PROVIDERS: Admitting Provider Internal Medicine; Emergency Provider Emergency Medicine; PCP Family Medicine; Visit Provider Internal Medicine
DX: L03.116 Cellulitis of left lower limb (principal); I87.2 Venous insufficiency (chronic) (peripheral); I11.0 Hypertensive heart disease with heart failure; E66.01 Morbid (severe) obesity due to excess calories; F41.9 Anxiety disorder, unspecified; I50.32 Chronic diastolic (congestive) heart failure; R73.03 Prediabetes; Z90.710 Acquired absence of both cervix and uterus; Z79.899 Other long term (current) drug therapy; Z68.39 Body mass index [BMI] 39.0-39.9, adult
CPT/HCPCS: 36415; 80048; 80053; 83605; 85025; 87040; 93971; 94761; 96365; 96367; 96372; 99285; G0378; J3370